=== PATIENT | female | born 1940 | race Caucasian/White ===

== ENCOUNTER 2017-06-08 14:30 | Inpatient (IN) | payer OTHER ==
[~2017-06-08] VITALS: Ht 177.8 cm; Wt 102.3 kg
[2017-06-08 17:36] LABS: HEMATOCRIT 36.3 % (36.0-46.0); MCH 24.9 PG (29.0-34.0); MCHC 31.1 G/DL (30.0-36.0); MCV 80.1 FL (83-99); MEAN PLAT.VOLUME 10.7 uM^3 (9.5-12.4); PLATELET COUNT 270 K/uL (156-360); RBC DIS.WIDTH-CV 18.6 % (11.8-14.6); RBC DIS.WIDTH-SD 54.3 % (39-53); RED BLOOD COUNT 4.53 M/uL (3.80-5.20); WHITE BLOOD COUNT 5.6 K/uL (4.1-10.2)
[2017-06-08 17:49] LABS: CHLORIDE 107 mEq/L (99-109); POTASSIUM 3.9 mEq/L (3.7-5.4); SODIUM 142 mEq/L (136-147)
[2017-06-08 17:51] LABS: GLUCOSE 86 mg/dL (70-99)
[2017-06-08 17:52] LABS: ANION GAP 10 MEQ/L (2-14)
[2017-06-08 17:53] LABS: TOTAL BILIRUBIN 0.3 mg/dL (0.0-1.0)
[2017-06-08 17:55] LABS: ALKALINE PHOSPHATASE 97 IU/L (3-129); GFR ESTIMATE (CALCULATED) > 59 mL/min/
[2017-06-08 17:56] LABS: UREA NITROGEN (BUN) 10 mg/dL (9-23)
[2017-06-08 22:42] VITALS: BP 130/72
[2017-06-09 01:12] VITALS: BP 140/68
[2017-06-09 06:40] VITALS: BP 157/81
[2017-06-09] MEDS ORDERED: ACETAMINOPHEN325 M1 PO (11:37)
[2017-06-09] MEDS ORDERED: LEVOFLOXACIN500 MG PO (11:43)
[2017-06-09] MEDS ORDERED: METOPROLOL SUCC25 MG PO (11:46)
[2017-06-09] MEDS ORDERED: RANITIDINE HCL150 MG PO (11:49)
[2017-06-09] MEDS ORDERED: ROXICODONE5 MG PO (11:49)
[2017-06-09] MEDS ORDERED: RISPERIDONE0.25 MG PO (11:50)
[2017-06-09 15:00] VITALS: BP 138/88
[2017-06-10 00:07] VITALS: BP 142/72
[2017-06-10 06:50] VITALS: BP 173/89
[2017-06-10 15:20] VITALS: BP 125/66
[2017-06-10 23:19] VITALS: BP 124/63
[2017-06-11 07:03] VITALS: BP 134/61
[2017-06-11] MEDS ORDERED: DONEPEZIL HCL5 MG PO (09:33)
[2017-06-11] MEDS ORDERED: LORAZEPAM0.5 MG PO (09:33)
== END 2017-06-11 15:11 | disposition home or self-care (01) | DRG 593 ==
LOC: EME 14:30 → EDOF 16:10 → 5EAST 16:10 → ENRESERV 16:18 → 5EAST 20:40 → ENPENDDIS 06-11 → 5EAST 06-11 15:11
PROVIDERS: Emergency Medicine
DX: L97.929 Non-pressure chronic ulcer of unspecified part of left lower leg with unspecified severity (principal); G30.9 Alzheimer's disease, unspecified; F01.50 Vascular dementia, unspecified severity, without behavioral disturbance, psychotic disturbance, mood disturbance, and anxiety; I10 Essential (primary) hypertension; L97.919 Non-pressure chronic ulcer of unspecified part of right lower leg with unspecified severity; L03.116 Cellulitis of left lower limb; I25.10 Atherosclerotic heart disease of native coronary artery without angina pectoris; E66.01 Morbid (severe) obesity due to excess calories; Z68.32 Body mass index [BMI] 32.0-32.9, adult; Z91.19 Patient's noncompliance with other medical treatment and regimen; Z96.651 Presence of right artificial knee joint; Z96.643 Presence of artificial hip joint, bilateral; Z88.5 Allergy status to narcotic agent; Z82.3 Family history of stroke; Z88.0 Allergy status to penicillin; Z80.0 Family history of malignant neoplasm of digestive organs; Z88.2 Allergy status to sulfonamides
CPT/HCPCS: 80053; 83605; 85027; 87040; 87070; 87075; 87205; 99281; 99285; J1200; J1650; J1956; J2543; J3370; J7050

== ENCOUNTER 2017-07-07 19:32 | Inpatient (IN) | payer OTHER ==
[~2017-07-07] VITALS: Ht 179.1 cm; Wt 97.1 kg
[~2017-07-07 19:32] MED LIST: ACETAMINOPHEN325 M1 PO; DONEPEZIL HCL5 MG PO; LEVOFLOXACIN500 MG PO; LORAZEPAM0.5 MG PO; METOPROLOL SUCC25 MG PO; RANITIDINE HCL150 MG PO; RISPERIDONE0.25 MG PO; ROXICODONE5 MG PO
[2017-07-07 20:35] LABS: HEMATOCRIT 33.9 % (36.0-46.0); HEMOGLOBIN 10.8 G/DL (11.9-15.5); MCH 24.9 PG (29.0-34.0); MCHC 31.9 G/DL (30.0-36.0); MCV 78.1 FL (83-99); PLATELET COUNT 327 K/uL (156-360); RBC DIS.WIDTH-CV 16.7 % (11.8-14.6); RBC DIS.WIDTH-SD 47.8 % (39-53); RED BLOOD COUNT 4.34 M/uL (3.80-5.20); WHITE BLOOD COUNT 5.7 K/uL (4.1-10.2)
[2017-07-07 20:43] LABS: CHLORIDE 107 mEq/L (99-109); SODIUM 137 mEq/L (136-147)
[2017-07-07 20:45] LABS: GLUCOSE 104 mg/dL (70-99)
[2017-07-07 20:49] LABS: CREATININE 0.8 mg/dL (0.6-1.3); GFR ESTIMATE (CALCULATED) > 59 mL/min/
[2017-07-07 20:50] LABS: UREA NITROGEN (BUN) 18 mg/dL (9-23)
[2017-07-07] MEDS ORDERED: ZYVOX600 MG PO (21:14)
[2017-07-08 02:28] VITALS: BP 144/80
[2017-07-08 11:32] VITALS: BP 114/58
[2017-07-08 20:25] VITALS: BP 129/81
[2017-07-08 23:57] VITALS: BP 121/58
[2017-07-09 03:46] VITALS: BP 153/79
[2017-07-09 06:56] LABS: HEMATOCRIT 31.8 % (36.0-46.0); HEMOGLOBIN 9.8 G/DL (11.9-15.5); MCH 24.6 PG (29.0-34.0); MCHC 30.8 G/DL (30.0-36.0); MCV 79.7 FL (83-99); PLATELET COUNT 265 K/uL (156-360); RBC DIS.WIDTH-CV 16.6 % (11.8-14.6); RBC DIS.WIDTH-SD 48.2 % (39-53); RED BLOOD COUNT 3.99 M/uL (3.80-5.20); WHITE BLOOD COUNT 4.8 K/uL (4.1-10.2)
[2017-07-09 07:16] LABS: CHLORIDE 108 MEQ/L (99-109); CREATININE 0.7 MG/DL (0.6-1.3); GFR ESTIMATE (CALCULATED) > 59 mL/min/; GLUCOSE 78 mg/dL (70-99); POTASSIUM 4.3 MEQ/L (3.7-5.4); SODIUM 143 MEQ/L (136-147); UREA NITROGEN (BUN) 10 mg/dL (9-23)
[2017-07-09 11:30] VITALS: BP 131/56
[2017-07-09 16:50] VITALS: BP 143/60
[2017-07-09 22:10] VITALS: BP 122/70
[2017-07-10 00:15] VITALS: BP 132/61
[2017-07-10 04:10] VITALS: BP 118/56
[2017-07-10 10:25] VITALS: BP 151/66
[2017-07-10 16:05] VITALS: BP 139/63
[2017-07-10 23:15] VITALS: BP 132/63
[2017-07-11 08:31] VITALS: BP 128/68
[2017-07-12 07:41] VITALS: BP 132/72
[2017-07-13] VITALS: BP 158/74
[2017-07-13 06:47] LABS: BASOPHIL (%) 0.5 % (0-1); EOSINOPHIL (%) 3.8 % (0-5); EOSINOPHIL COUNT 0.2 K/uL (0-0.3); HEMATOCRIT 33.2 % (36.0-46.0); HEMOGLOBIN 10.1 G/DL (11.9-15.5); IMMATURE GRANULOCYTE (%) 0.7 % (0.0-0.7); LYMPHOCYTE COUNT 0.9 K/uL (1.0-2.8); MCH 24.5 PG (29.0-34.0); MCHC 30.4 G/DL (30.0-36.0); MCV 80.4 FL (83-99); MONOCYTE (%) 7.9 % (3-12); MONOCYTE COUNT 0.5 K/uL (0-0.8); NEUTROPHIL (%) 71.1 % (45-76); NEUTROPHIL COUNT 4.2 K/uL (1.8-6.4); PLATELET COUNT 228 K/uL (156-360); RBC DIS.WIDTH-CV 17.4 % (11.8-14.6); RBC DIS.WIDTH-SD 49.7 % (39-53); RED BLOOD COUNT 4.13 M/uL (3.80-5.20); WHITE BLOOD COUNT 5.8 K/uL (4.1-10.2)
[2017-07-13 07:23] LABS: CHLORIDE 110 MEQ/L (99-109); CREATININE 0.7 MG/DL (0.6-1.3); GFR ESTIMATE (CALCULATED) > 59 mL/min/; GLUCOSE 82 mg/dL (70-99); POTASSIUM 3.7 MEQ/L (3.7-5.4); SODIUM 146 MEQ/L (136-147); UREA NITROGEN (BUN) 9 mg/dL (9-23)
[2017-07-13 07:45] VITALS: BP 146/85
[2017-07-13 15:37] VITALS: BP 125/59
[2017-07-14 15:30] VITALS: BP 124/60
[2017-07-14 23:00] VITALS: BP 140/70
[2017-07-15 06:58] LABS: HEMATOCRIT 32.2 % (36.0-46.0); MCH 25.1 PG (29.0-34.0); MCHC 31.1 G/DL (30.0-36.0); MCV 80.7 FL (83-99); PLATELET COUNT 220 K/uL (156-360); RBC DIS.WIDTH-CV 17.6 % (11.8-14.6); RBC DIS.WIDTH-SD 51.4 % (39-53); RED BLOOD COUNT 3.99 M/uL (3.80-5.20)
[2017-07-15 07:21] LABS: CHLORIDE 111 MEQ/L (99-109); CREATININE 0.6 MG/DL (0.6-1.3); GFR ESTIMATE (CALCULATED) > 59 mL/min/; GLUCOSE 73 mg/dL (70-99); POTASSIUM 3.7 MEQ/L (3.7-5.4); SODIUM 145 MEQ/L (136-147); UREA NITROGEN (BUN) 8 mg/dL (9-23)
[2017-07-15 08:00] VITALS: BP 128/58
[2017-07-15 16:45] VITALS: BP 130/54
[2017-07-15 23:35] VITALS: BP 164/78
[2017-07-16 08:09] LABS: THYROTROPIN (TSH) 1.9 MIU/L (0.4-5.5)
[2017-07-16 08:20] VITALS: BP 180/90
[2017-07-17 00:05] VITALS: BP 168/77
[2017-07-17 08:35] VITALS: BP 140/72
[2017-07-17 17:15] VITALS: BP 119/71
[2017-07-18 00:49] VITALS: BP 115/74
[2017-07-18 09:00] VITALS: BP 120/68
[2017-07-18 17:10] VITALS: BP 130/72
[2017-07-18 22:45] VITALS: BP 171/77
[2017-07-19 15:00] VITALS: BP 129/66
[2017-07-19] MEDS ORDERED: LOVENOX40 MG/0.4 SC (16:21)
[2017-07-19] MEDS ORDERED: OXYCODONE HCL5 MG PO (16:21)
[2017-07-19] MEDS ORDERED: Zeasorb Antifungal T TP (16:21)
[2017-07-19] MEDS ORDERED: SERTRALINE HCL50 MG PO (16:21)
[2017-07-19] MEDS ORDERED: DONEPEZIL HCL10 MG PO (16:21)
[2017-07-19 22:50] VITALS: BP 130/60
[2017-07-20 08:06] VITALS: BP 131/82
== END 2017-07-20 16:51 | DRG 593 ==
LOC: EME 19:32 → 2EAST 23:17 → EDOF 23:17 → ENRESERV 23:21 → 2EAST 07-08 01:34
PROVIDERS: Emergency Medicine; Family Medicine
DX: L97.328 Non-pressure chronic ulcer of left ankle with other specified severity (principal); L03.116 Cellulitis of left lower limb; F01.51 Vascular dementia, unspecified severity, with behavioral disturbance; I87.2 Venous insufficiency (chronic) (peripheral); B96.5 Pseudomonas (aeruginosa) (mallei) (pseudomallei) as the cause of diseases classified elsewhere; I10 Essential (primary) hypertension; G30.9 Alzheimer's disease, unspecified; F60.9 Personality disorder, unspecified; I25.10 Atherosclerotic heart disease of native coronary artery without angina pectoris; K21.9 Gastro-esophageal reflux disease without esophagitis; F41.9 Anxiety disorder, unspecified; Z96.643 Presence of artificial hip joint, bilateral; Z96.651 Presence of right artificial knee joint; E66.9 Obesity, unspecified; Z68.30 Body mass index [BMI] 30.0-30.9, adult; Z91.19 Patient's noncompliance with other medical treatment and regimen; Z99.3 Dependence on wheelchair; Z75.1 Person awaiting admission to adequate facility elsewhere
CPT/HCPCS: 71046; 80048; 84443; 85025; 85027; 87070; 87075; 87077; 87186; 87205; 99281; 99285; A6260; J1650; J1956; J2543; J3370; J3486; J7050